=== PATIENT | male | born 1985 | race Two or more races ===

== ENCOUNTER 2016-11-26 18:53 | Emergency (ER) | payer OTHER ==
[2016-11-26 18:59] VITALS: BP 118/78; PULSE 10; TEMP 99.5; BMI 29.9
[2016-11-26] MEDS ORDERED: IBUPROFEN 400 MG TABLET (FP) PO ONE ×2 (19:33→19:39)
--- NOTE | 2016-11-26 19:38 | PDOC ---
History of Present Illness - General Chief Complaint: Diarrhea Stated Complaint: COLD SYMPTOMS Time Seen by Provider: 11/26/16 19:08 History Source: Patient Exam Limitations: No Limitations - History of Present Illness Initial Comments: 11/26/16 19:33 30yo Male patient presents to ED c/o subjective fever, h/a, dizziness, muscle pain, diarrhea x 2 days. He has been taking Tylenol with no relief of symptoms. Patient also requesting x-ray of left wrist. Patient reports using a hammer drill a few days ago at work and twisted his wrist. He thought that pain would go away, but it has been constant. PmHx: Gerd. Currently taking Omeprazole. Denies any other complaint at this time. Timing/Duration: other (2 days) Severity: moderate Modifying Factors: improves with: medication Associated Symptoms: reports: headaches, weakness. denies: denies symptoms, chest pain, cough, diaphoresis, fever/chills, loss of appetite, malaise, nausea/ vomiting, rash, seizure, shortness of breath, syncope, other Past History - Travel Traveled outside of the country in the last 30 days: No Close contact w/someone who was outside of country & ill: No - Past Medical History Allergies/Adverse Reactions: Allergies Allergy/AdvReac Type Severity Reaction Status Date / Time Penicillins AdvReac Vomiting Verified 11/26/16 18:55 Home Medications: Ambulatory Orders Ibuprofen [Motrin -] 600 mg PO Q6H PRN #30 tablet 11/26/16 Loperamide HCl [Imodium A-D] 2 mg PO ASDIR PRN #10 tablet MDD 4 tabs 11/26/16 Omeprazole 20 mg PO DAILY 11/26/16 Ondansetron [Zofran Odt -] 4 mg SL Q6H PRN #20 od.tablet 11/26/16 - Surgical History Abdominal Surgery: Yes (hernia) - Immunization History Immunization Up to Date: Yes - Psycho/Social/Smoking Cessation Hx Anxiety: No Suicidal Ideation: No Smoking History: Never smoked Have you smoked in the past 12 months: No Information on smoking cessation initiated: No Hx Alcohol Use: No Drug/Substance Use Hx: No Substance Use Type: None Review of Systems - Review of Systems Able to Perform ROS?: Yes Is the patient limited Romanian proficient: No Constitutional: Yes: Malaise, Other (Subjective Fever). No: Chills, Fever HEENTM: No: Ear Pain, Ear Discharge, Nose Congestion, Throat Pain, Difficulty Swallowing Respiratory: No: Cough, Stridor, Wheezing Cardiac (ROS): No: Chest Pain, Palpitations, Syncope ABD/GI: Yes: Diarrhea. No: Constipated, Nausea, Poor Appetite, Poor Fluid Intake, Rectal Bleeding, Vomiting : No: Burning, Dysuria, Discharge, Flank Pain, Hematuria Musculoskeletal: Yes: Muscle Weakness. No: Back Pain, Joint Pain, Joint Stiffness Integumentary: No: Bruising, Erythema, Lesions, Rash, Sweating Neurological: Yes: Headache. No: Numbness, Paresthesia, Seizure, Tingling, Tremors, Weakness, Unsteady Gait, Ataxia All Other Systems: Reviewed and Negative *Physical Exam - Vital Signs Last Vital Signs Temp Pulse Resp BP Pulse Ox 99.5 F 10 L 20 118/78 99 11/26/16 18:55 11/26/16 18:55 11/26/16 18:55 11/26/16 18:55 11/26/16 18:55 - Physical Exam General Appearance: Yes: Nourished, Appropriately Dressed. No: Apparent Distress, Mild Distress, Moderate Distress, Severe Distress HEENT: positive: EOMI, JANES, Normal ENT Inspection, Normal Voice, Symmetrical, TMs Normal, Pharynx Normal. negative: Pharyngeal Erythema, Tonsillar Exudate, Tonsillar Erythema, Nasal Congestion, Rhinorrhea, TM Bulging, TM Dull, TM Erythema Neck: positive: Trachea midline, Supple. negative: Stridor, Lymphadenopathy (R) , Lymphadenopathy (L) Respiratory/Chest: positive: Lungs Clear, Normal Breath Sounds. negative: Respiratory Distress, Accessory Muscle Use, Labored Respiration, Rapid RR, Wheezing Cardiovascular: positive: Regular Rhythm, Regular Rate. negative: Edema, JVD, Murmur Gastrointestinal/Abdominal: positive: Normal Bowel Sounds, Soft. negative: Distended, Guarding, Rebound, Tenderness Musculoskeletal: positive: Normal Inspection. negative: CVA Tenderness Extremity: positive: Normal Capillary Refill, Normal Inspection, Normal Range of Motion. negative: Pedal Edema, Swelling Integumentary: positive: Normal Color, Dry, Warm. negative: Erythema, Hives, Rash, Swelling Neurologic: positive: certified cytotechnologist II-XII NML intact, Fully Oriented, Alert, Normal Mood/ Affect, Normal Response, Motor Strength 5/5 Procedures - Splinting Splint Location: Left: Wrist Pre-Proc Neuro Vasc Exam: normal Pre-Made Type: velcro Splint Type: Yes: Wrist Post-Proc Neuro Vasc Exam: normal Isai Bandage: no Sling: No Complications: No Post splint xray: No ED Treatment Course - LABORATORY CBC & Chemistry Diagram: 11/26/16 20:30 11/26/16 20:30 - RADIOLOGY Radiology Studies Ordered: Category Date Time Status WRIST-LEFT [RAD] Stat Radiology 11/26/16 19:33 Ordered *DC/Admit/Observation/Transfer Diagnosis at time of Disposition: Viral syndrome Wrist injury Qualifiers: Encounter type: initial encounter Laterality: left Qualified Code(s): S69.92XA - Unspecified injury of left wrist, hand and finger(s), initial encounter - Discharge Dispostion Disposition: HOME Condition at time of disposition: Good Admit: No - Prescriptions Prescriptions: Loperamide HCl [Imodium A-D] 2 mg PO ASDIR PRN #10 tablet MDD 4 tabs PRN Reason: Diarrhea Ibuprofen [Motrin -] 600 mg PO Q6H PRN #30 tablet PRN Reason: Pain Ondansetron [Zofran Odt -] 4 mg SL Q6H PRN #20 od.tablet PRN Reason: Nausea - Referrals Referrals: Juan Washington MD [Staff Physician] - STAFF,NOT ON [Primary Care Provider] - Raquel Oates MD [Staff Physician] - - Patient Instructions Printed Discharge Instructions: DI for Wrist Pain, Diarrhea Additional Instructions: FOLLOW UP WITH DR. WASHINGTON (ORTHOPEDIC) REGARDING WRIST INJURY/PAIN. USE TYLENOL OR MOTRIN FOR PAIN. APPLY COLD COMPRESS TO AFFECTED AREA NEEDED FOR COMFORT. KEEP ARM IN SLING WHILE OUT OF BED. ISAI WRAP FOR COMFORT. TAKE MEDICATIONS PRESCRIBED. RETURN IF SYMPTOMS WORSEN OR ANY CONCERN FOR FURTHER EVALUATION. ALSO, FOLLOW UP WITH RAQUEL KAUFMAN (GASTROENTEROLOGY) FOR FURTHER EVALUATION. Print Language: ETHIOPIAN - Post Discharge Activity Work/School Note: Back to Work
[2016-11-26 19:55] LABS: URINE APPEARANCE CLEAR; URINE BILIRUBIN NEGATIVE (NEGATIVE); URINE BLOOD NEGATIVE (NEGATIVE); URINE COLOR STRAW; URINE GLUCOSE (UA) NEGATIVE (NEGATIVE); URINE KETONE NEGATIVE (NEGATIVE); URINE LEUK ESTERASE NEGATIVE (NEGATIVE); URINE NITRITE NEGATIVE (NEGATIVE); URINE PROTEIN NEGATIVE (NEGATIVE); URINE UROBILINOGEN NEGATIVE E.U./dl (0.2-1.0)
--- NOTE | 2016-11-26 20:06 | PDOC ---
[id number] 99 11/26/16 18:55 11/26/16 18:55 11/26/16 18:55 11/26/16 18:55 11/26/16 18:55 ED Treatment Course - LABORATORY CBC & Chemistry Diagram: 11/26/16 20:30 11/26/16 20:30 - ADDITIONAL ORDERS Additional order review: Laboratory Results 11/26/16 19:49 Urine Color Straw Urine Appearance Clear Urine pH 7.0 Ur Specific [place] 1.005 Urine Protein Negative Urine Glucose (UA) Negative Urine Ketones Negative Urine Blood Negative Urine Nitrite Negative Urine Bilirubin Negative Urine Urobilinogen Negative Ur Leukocyte Esterase Negative - Medications Given in the ED: ED Medications Discontinued Medications Generic Name Dose Route Start Last Admin Trade Name Freq PRN Reason Stop Dose Admin Ibuprofen 800 mg 11/26/16 19:33 11/26/16 19:45 Motrin - PO 11/26/16 19:34 800 mg ONCE ONE Administration Medical Decision Making - Medical Decision Making 11/26/16 20:06 agree with care from IGGY Rodriguez *DC/Admit/Observation/Transfer Diagnosis at time of Disposition: Viral syndrome, Wrist injury - Discharge Dispostion Disposition: HOME Condition at time of disposition: Good - Prescriptions Prescriptions: Loperamide HCl [Imodium A-D] 2 mg PO ASDIR PRN #10 tablet MDD 4 tabs PRN Reason: Diarrhea Ibuprofen [Motrin -] 600 mg PO Q6H PRN #30 tablet PRN Reason: Pain Ondansetron [Zofran Odt -] 4 mg SL Q6H PRN #20 od.tablet PRN Reason: Nausea - Referrals Referrals: Juan Washington MD [Staff Physician] - STAFF,NOT ON [Primary Care Provider] - Raquel Oates MD [Staff Physician] - - Patient Instructions Printed Discharge Instructions: Diarrhea, DI for Wrist Pain Additional Instructions: FOLLOW UP WITH DR. WASHINGTON (ORTHOPEDIC) REGARDING WRIST INJURY/PAIN. USE TYLENOL OR MOTRIN FOR PAIN. APPLY COLD COMPRESS TO AFFECTED AREA NEEDED FOR COMFORT. KEEP ARM IN SLING WHILE OUT OF BED. PRAMOD WRAP FOR COMFORT. TAKE MEDICATIONS PRESCRIBED. RETURN IF SYMPTOMS WORSEN OR ANY CONCERN FOR FURTHER EVALUATION. ALSO, FOLLOW UP WITH RAQUEL KAUFMAN (GASTROENTEROLOGY) FOR FURTHER EVALUATION. Print Language: MONEGASQUE - Post Discharge Activity Work/School Note: Back to Work
[2016-11-26 20:47] LABS: BASOPHIL 0.8 % (0-2.0); EOSINOPHIL 0.6 % (0-4.5); MCH 28.8 pg (25.7-33.7); MCHC 33.8 g/dl (32.0-35.9); MEAN CELL VOLUME 85.2 fl (80-96); NEUTROPHILS 81.8 % (42.8-82.8); PLATELET COUNT 246 K/MM3 (134-434); RDW 13.1 % (11.9-15.9); WHITE BLOOD COUNT 10.9 K/mm3 (4.0-10.0)
[2016-11-26 21:15] LABS: CALCIUM 9.1 mg/dL (8.5-10.1); CREATININE 1.1 mg/dL (0.7-1.3)
== END 2016-11-26 21:52 | disposition home or self-care (01) ==
LOC: JER 18:53
PROC: 2W39X1Z Immobilization of Left Upper Extremity using Splint (ICD-10-PCS; principal; 2016-11-26)
DX: B34.9 Viral infection, unspecified (principal); S69.82XA Other specified injuries of left wrist, hand and finger(s), initial encounter; X50.1XXA Overexertion from prolonged static or awkward postures, initial encounter; Y93.89 Activity, other specified; Y92.89 Other specified places as the place of occurrence of the external cause; Y99.0 Civilian activity done for income or pay
CPT/HCPCS: 36415; 73110-TC-LT; 80048; 81003; 85025; 87086; 87804; 99282-25